=== PATIENT | female | born 1985 | race African-American/Black ===

== ENCOUNTER 2024-11-24 12:18 | Emergency (ER) | payer SELFPAY ==
[~2024-11-24] VITALS: Ht 154.9 cm; Wt 104.0 kg
[2024-11-24 12:36] VITALS: O2SAT 99
[2024-11-24] MEDS ORDERED: SULF1TAB48 MT (13:12)
[2024-11-24] MEDS ORDERED: CEPH500C2 MT (13:12)
[2024-11-24] MEDS ORDERED: DIPH25TA62 MT (13:12)
[2024-11-24 13:28] VITALS: BP 131/73; PULSE 76; RESP 16; TEMP 36.7; O2SAT 98
== END 2024-11-24 13:38 | disposition home or self-care (01) ==
LOC: ER 12:18
DX: L03.90 Cellulitis, unspecified (principal); Z79.899 Other long term (current) drug therapy
CPT/HCPCS: 99283